=== PATIENT | female | born 1970 | race Caucasian/White ===

== ENCOUNTER 2019-10-28 19:36 | Emergency (ER) | payer OTHER, SELFPAY ==
--- NOTE | ~2019-10-28 | CT_ITS ---
EXAMINATION: CT abdomen pelvis w con INDICATION: Right lower quadrant pain TECHNIQUE: Computed tomographic images of the abdomen and pelvis were obtained after the administrati on of 100 cc of Omnipaque 350 intravenous contrast. The dose-length product (DLP) was 658.01 mGy-cm. Automated exposure control and iterative reconstruction technique were employed. COMPARISON: None available FINDINGS: The lung bases are clear. The heart size is normal. An old right-sided rib fracture is note d. There is a small sliding hiatal hernia. Breast implants are noted. The gallbladder is surgically a bsent. There is mild enlargement of the common bile duct and central intrahepatic ducts which is like ly due to post cholecystectomy state. The liver, spleen, pancreas, and adrenal glands are normal. The kidneys are unremarkable. The appendix is normal. There is calcified atherosclerosis of the aorta an d many of the other arteries. No pathologically enlarged abdominal or pelvic lymph nodes are identifi ed. There is no free intraperitoneal gas or evidence of bowel obstruction. A corpus luteum is noted i n the right ovary. There is moderate spondylosis of the lower thoracic spine. A fat-containing umbili diaz hernia is noted. IMPRESSION: 1. No CT correlate for the patient's symptoms. Reviewed, dictated and finalized at location A.
[2019-10-28 19:40] VITALS: BP 149/86; PULSE 96; RESP 18; TEMP 36.3; O2SAT 98
--- NOTE | 2019-10-28 19:48 | ED.ABDPAIN ---
HPI - Abdominal Pain General Chief Complaint: Abdominal Pain Stated Complaint: abd pain Time Seen by Provider: 10/28/19 19:48 History of Present Illness HPI narrative: Intermittent stabbing RLQ abdominal pain for the past couple of hours. No radiation. No inciting event. Lasts for a few minutes each time. She has never had this pain before. No nausea, vomiting, diarrhea, constipation, dysuria. Related Data Home Medications Medication Instructions Recorded Confirmed pantoprazole PO 05/01/19 Allergies Allergy/AdvReac Type Severity Reaction Status Date / Time codeine Allergy Unknown Verified 10/28/19 19:42 Review of Systems Review of Systems: All systems reviewed & are unremarkable except as noted in HPI and below Constitutional: Constitutional: Denies fever(s) Cardiovascular: Cardiovascular: Denies chest pain Respiratory: Respiratory: Denies dyspnea Gastrointestinal: Gastrointestinal: Reports abdominal pain, Denies constipation, Denies diarrhea, Denies nausea and Denies vomiting Musculoskeletal: Musculoskeletal: Denies back pain Neurologic: Denies dizziness and Denies weakness PMFSH Past Medical History Medical History Brain aneurysm Surgical History Surgical History History of craniotomy surgery for brain aneurysm Hx of section Hx of cholecystectomy Social History Social History Smoking status: Smoker, status unknown Alcohol intake: current Gender identity (if verbalized by the patient): Female Exam Const: General: no acute distress and alert Orientation/consciousness: patient oriented x3 HENMT: Head: normal to inspection Resp: Effort & Inspection: normal respiratory effort Auscultation: clear to auscultation bilaterally Cardio: Rate: regular rate Rhythm: regular rhythm GI: Inspection: non-distended GI Palp: Yes Soft to palpation and No Tenderness to palpation present (GI) Auscultation: normal bowel sounds Course Vital Signs Vital signs: Vital Signs Temperature 36.3 C L 10/28/19 19:40 Pulse Rate 96 10/28/19 19:40 Respiratory Rate 18 10/28/19 19:40 Blood Pressure 149/86 H 10/28/19 19:40 Pulse Oximetry 98 10/28/19 19:40 Temperature 36.3 C L 10/28/19 19:40 Pulse Rate 94 10/28/19 22:44 Respiratory Rate 16 10/28/19 22:44 Blood Pressure 111/75 10/28/19 22:44 Pulse Oximetry 97 10/28/19 22:44 MDM - Abdominal Pain MDM Narrative Medical decision making narrative: No more pain since arrival to the ED. She now believes that she was having gas pains. CT and labs unrevealing. Differential Diagnosis Differential diagnosis: Likely acute appendicitis, calculus of kidney, constipation and pancreatitis Medical Records Attestation: I reviewed the patient's medical records. Lab Data Attestation: I reviewed the patient's lab results. Result diagrams: 10/28/19 20:22 10/28/19 21:03 Labs: Lab Results 10/28/19 10/28/19 10/28/19 Range/Units 20:01 20:22 21:03 WBC 15.0 H (4.5-10.0) K/mm3 RBC 4.25 (4.2-5.4) M/mm3 Hgb 13.1 (12.0-15.0) g/dL Hct 38.9 (37.0-47.0) % MCV 91.5 (80-100) fl MCH 30.8 (26-34) pg MCHC 33.7 (32-36) g/dl RDW 12.8 (11.5-14.5) % Plt Count 428 H (150-375) k/mm3 MPV 9.3 (7.4-10.4) fl Immature Gran % (Auto) 0.5 (0-0.5) % Neut % (Auto) 74.5 H (45.5-73.1) % Lymph % (Auto) 18.4 (18.3-44.2) % [place] % (Auto) 5.4 (2.6-8.5) % Eos % (Auto) 0.9 (0-4.4) % Baso % (Auto) 0.3 (0.2-1.2) % Lymph # (Auto) 2.76 (0.9-3.2) K/mm3 [place] # (Auto) 0.8 H (0.1-0.6) K/mm3 Eos # (Auto) 0.1 (0-0.3) K/mm3 Baso # (Auto) 0.1 (0.0-0.1) K/mm3 Abs Immat Gran (auto) 0.07 H (0.00-0.031) K/mm3 Absolute Neuts (auto) 11.1 H (1.3-6.7) K/mm3 Absolute Nucleated RB
[2019-10-28 20:29] LABS: Basophils Absolute Auto 0.1 K/mm3 (0.0-0.1); Basophils Percent Auto 0.3 % (0.2-1.2); Eosinophils Absolute Auto 0.1 K/mm3 (0-0.3); Eosinophils Percent Auto 0.9 % (0-4.4); Hematocrit 38.9 % (37.0-47.0); Hemoglobin 13.1 g/dL (12.0-15.0); Immature Granulocyte Absolute 0.07 K/mm3 (0.00-0.031); Immature Granulocyte Percent A 0.5 % (0-0.5); Lymphocytes Absolute Auto 2.76 K/mm3 (0.9-3.2); Lymphocytes Percent Auto 18.4 % (18.3-44.2); Mean Corpuscular HGB Conc 33.7 g/dl (32-36); Mean Corpuscular Hemoglobin 30.8 pg (26-34); Mean Corpuscular Volume 91.5 fl (80-100); Mean Platelet Volume 9.3 fl (7.4-10.4); Monocytes Absolute Auto 0.8 K/mm3 (0.1-0.6); Monocytes Percent Auto 5.4 % (2.6-8.5); Neutrophils Absolute Auto 11.1 K/mm3 (1.3-6.7); Neutrophils Percent Auto 74.5 % (45.5-73.1); Platelet Count Result 428 k/mm3 (150-375); Red Blood Count 4.25 M/mm3 (4.2-5.4); Red Cell Distribution Width 12.8 % (11.5-14.5)
[2019-10-28 20:33] LABS: Add Urine Microscopic? NO; Appearance Urine Clear (Clear); Bilirubin Urine Negative (Negative); Blood Urine Negative (Negative); Color Urine Straw (Yellow); Glucose Urine UA Negative (Negative); Ketones Urine Negative (Negative); Leukocyte Esterase Ur Negative LEU/UL (Negative); Nitrate Urine Negative (Negative); Protein Urine Negative (Negative); Specific Grav Ur 1.006 (1.001-1.035); Urobilinogen Urine Negative mg/dL (<2.0)
[2019-10-28 21:21] LABS: Blood Urea Nitrogen 9 mg/dL (7-17); Calcium 8.9 mg/dL (8.4-10.2); Carbon Dioxide 24 mmol/L (22-30); Chloride 105 mmol/L (98-107); Estimated CRCL calculation 97 ml/min; Estimated Glomerular Filt Rate > 60; Glucose 106 mg/dL (65-105); Potassium 3.9 mmol/L (3.4-5.0); Sodium 136 mmol/L (137-145)
--- NOTE | 2019-10-28 21:31 | PC.NURSE ---
Pt now taken down to CT at 2130.
[2019-10-28 22:09] VITALS: BP 125/77; PULSE 96; RESP 18; O2SAT 97
--- NOTE | 2019-10-28 22:16 | PC.NURSE ---
Pt states she has been feeling fine since she's been here, denies any pain. Sates she think it may have just been gas, made aware.
[2019-10-28 22:44] VITALS: BP 111/75; PULSE 94; RESP 16; O2SAT 97
== END 2019-10-28 22:25 | disposition home or self-care (01) ==
PROVIDERS: Emergency Medicine; Emergency Provider Emergency Medicine; PCP Emergency Medicine
DX: R10.31 Right lower quadrant pain (principal)
CPT/HCPCS: 36415; 74177; 80048; 81003; 85025; 99284; Q9967

== ENCOUNTER 2019-12-30 09:37 | Emergency (ER) | payer OTHER, SELFPAY ==
--- NOTE | ~2019-12-30 | XR_ITS ---
XR elbow LT min 3V DATE: 12/30/2019 10:02 INDICATION: Left elbow pain. No known injury. TECHNIQUE: 4 views COMPARISON: None FINDINGS: No fracture or dislocation or joint effusion. No periosteal reaction or bone destruction. IMPRESSION: No significant abnormality Reviewed, dictated and finalized at location B. IMPRESSION: No significant abnormality
[2019-12-30 09:47] VITALS: BP 143/80; PULSE 100; RESP 18; TEMP 37; O2SAT 97
--- NOTE | 2019-12-30 09:59 | ED.UPPEXIN ---
HPI - Extremity Injury (Upper) General Chief Complaint: Extremity Injury, Upper Stated Complaint: left arm pain Time Seen by Provider: 12/30/19 09:52 Source: RN notes reviewed History of Present Illness HPI narrative: Patient presents emergency department from home for left elbow pain. Patient states symptoms initially began 2 months ago. Patient states pain initially began when she picked up a cast iron skillet. Since that time she is had pain in the left elbow this is worse with activity. The pain is worse with full extension of the elbow. She denies any previous work-up. Denies any swelling of the elbow denies any fevers or chills Related Data Allergies Allergy/AdvReac Type Severity Reaction Status Date / Time codeine Allergy Chest Pain Verified 12/30/19 09:46 Review of Systems Review of Systems: Narrative: Gen.: Denies fevers or chills Musculoskeletal: See HPI Neuro: Denies numbness, tingling, weakness Skin: Denies rash Endo: Denies DM PMFSH Past Medical History Medical History Brain aneurysm Social History Social History Smoking status: Smoker, status unknown Alcohol intake: current Gender identity (if verbalized by the patient): Female Exam Narrative: Exam Narrative: APPEARANCE: No acute distress, nontoxic, resting in bed Eyes: EOMI HEENT: Normocephalic, atraumatic, RESPIRATORY: No respiratory distress MUSCULOSKELETAl: Tender palpation over the left elbow in between the lateral condyle and olecranon process there is no tenderness directly over the olecranon process or the bilateral condyles there is no swelling or erythema pain with full extension of the elbow, no tenderness of the shoulder or wrist, radial pulse 2+, neurovascular intact NEURO: Awake and alert. Following commands, speech normal, no focal deficits SKIN:: Warm, dry. Normal Color no rash or lesions Course Course Emergency Course: Discussed with patient results of workup and diagnosis. Discussed need for follow-up with primary care, proper use of medication, and reasons to return to the emergency department. Patient understands and agrees to current treatment plan Vital Signs Vital signs: Vital Signs Temperature 98.6 F 12/30/19 09:47 Pulse Rate 100 12/30/19 09:47 Respiratory Rate 18 12/30/19 09:47 Blood Pressure 143/80 H 12/30/19 09:47 Pulse Oximetry 97 12/30/19 09:47 Temperature 98.6 F 12/30/19 09:47 Pulse Rate 100 12/30/19 09:47 Respiratory Rate 18 12/30/19 09:47 Blood Pressure 143/80 H 12/30/19 09:47 Pulse Oximetry 97 12/30/19 09:47 MDM - Extremity Injury (Upper) Imaging Data Radiologist's impression: ITS Impressions Elbow X-Ray 12/30/19 10:04 IMPRESSION: No significant abnormality Discharge Plan Discharge Clinical Impression: Elbow pain, left Patient Disposition: Home, Self-Care Condition: Stable Instructions: Antibiotic Form, Elbow Sprain (ED) Additional Instructions: Return for increasing pain, numbness or tingling in extremities or any other symptoms of concern Prescriptions: New ibuprofen [IBU] 600 mg tablet 600 mg PO Q6H PRN (Reason: pain) Qty: 20 RF: 0 Follow-up/Referrals: Neeraj Benedict MD [Physician] - (Follow-up in 2 to 3 days for further orthopedic treatment and evaluation) Poncho Pratt MD [Primary Care Provider] - 2 Days Time of Disposition: 10:11
[2019-12-30] MEDS: IBUPROFEN 600 MG TABLET PO (10:11)
== END 2019-12-30 10:32 | disposition home or self-care (01) ==
PROVIDERS: Emergency Provider Emergency Medicine; PCP Emergency Medicine
DX: M25.522 Pain in left elbow (principal)
CPT/HCPCS: 73080; 99283; A4565; A9270

== ENCOUNTER 2020-01-24 18:50 | Emergency (ER) | payer OTHER, SELFPAY ==
[2020-01-24 19:00] VITALS: BP 138/83; PULSE 118; RESP 18; TEMP 37.1; O2SAT 98
[2020-01-24] MEDS: methylPREDNISolone SOD SUCC 125 MG VIAL IV PUSH (20:01)
[2020-01-24] MEDS: FAMOTIDINE 20 MG/2 ML VIAL IV PUSH (20:01)
[2020-01-24] MEDS: diphenhydrAMINE HCl INJ 50 MG/ML VIAL 25 MG IV PUSH (20:01)
[2020-01-24] MEDS: SODIUM CHLORIDE 0.9% IV 1,000 ML 999 ML IV CONT (20:01)
--- NOTE | 2020-01-24 21:03 | ED.GENADULT ---
HPI - General Adult General Chief complaint: Allergic Reaction <Daron Torrez PA-C - Last Filed: 01/24/20 21:06> Stated complaint: stung by yellow jackets! <Daron Torrez PA-C - Last Filed: 01/24/20 21:06> Time Seen by Provider: 01/24/20 19:35 <Daron Torrez PA-C - Last Filed: 01/24/20 21:06> Source: patient <Daron Torrez PA-C - Last Filed: 01/24/20 21:06> Mode of arrival: ambulatory <Daron Torrez PA-C - Last Filed: 01/24/20 21:06> Limitations: no limitations <Daron Torrez PA-C - Last Filed: 01/24/20 21:06> History of Present Illness HPI narrative: Patient is a 49-year-old female who presents to emergency department for evaluation of welts secondary to multiple yellowjacket stings that occurred today while working in the yard patient was stung multiple times has not taken anything for her symptoms and on arrival is resting comfortably in the room in no distress symptoms are worse with palpation <Daron Torrez PA-C - Last Filed: 01/24/20 21:06> Related Data Allergies/adverse reactions: Allergies Allergy/AdvReac Type Severity Reaction Status Date / Time codeine Allergy Chest Pain Verified 12/30/19 09:46 <Daron Torrez PA-C - Last Filed: 01/24/20 21:06> Review of Systems Review of Systems: All systems reviewed & are unremarkable except as noted in HPI and below <Daron Torrez PA-C - Last Filed: 01/24/20 21:06> [facility] Past Medical History Medical History: Medical History Brain aneurysm <Daron Torrez PA-C - Last Filed: 01/24/20 21:06> Surgical History Surgical History: Surgical History History of craniotomy surgery for brain aneurysm Hx of section Hx of cholecystectomy <JOHN Sumner Last Filed: 01/24/20 21:06> Social History Social History: Social History Smoking status: Smoker, status unknown Alcohol intake: current Gender identity (if verbalized by the patient): Female <Daron Torrez PA-C - Last Filed: 01/24/20 21:06> Exam Narrative: Exam Narrative: GENERAL: Well-appearing, well-nourished, and in no acute distress. HEAD: Normocephalic, atraumatic. EYES: PERRLA and EOMI. ENT: Nares clear, no rhinorrhea or epistaxis. Mucous membranes moist. Oropharynx without tonsillar hypertrophy exudate or other lesions. No angioedema in the oropharynx NECK: Supple. No adenopathy or masses. No stridor CHEST: Clear to auscultation. No respiratory distress. No wheezes rales or rhonchi HEART: Regular rate and rhythm. No murmur heard. EXTREMITIES: Normal range of motion. No edema. SKIN: Warm, dry. Patient with several welts on the abdomen and extremities consistent with insect stings NEURO: No focal deficits. Alert and oriented x3. PSYCH: Normal mood and affect. <Daron Torrez PA-C - Last Filed: 01/24/20 21:06> Course Course Emergency Course: Patient aware of case findings treatment plan and diagnosis agreeing to follow-up as instructed and felt appropriate for discharge home <Daron Torrez PA-C - Last Filed: 01/24/20 21:06> Vital Signs Vital signs: Vital Signs Temperature 98.7 F 01/24/20 19:00 Pulse Rate 118 H 01/24/20 19:00 Respiratory Rate 18 01/24/20 19:00 Blood Pressure 138/83 01/24/20 19:00 Pulse Oximetry 98 01/24/20 19:00 Temperature 98.1 F 01/24/20 21:24 Pulse Rate 84 01/24/20 21:24 Respiratory Rate 16 01/24/20 21:24 Blood Pressure 111/74 01/24/20 21:24 Pulse Oximetry 98 01/24/20 21:24 <Daron Torrez PA-C - Last Filed: 01/24/20 21:06> Vital Signs Temperature 98.7 F 01/24/20 19:00 Pulse Rate 118 H 01/24/20 19:00 Respiratory Rate 18 01/24/20 19:00 Blood Pressure 138/83 01/24/20 19:00 Pulse Oximetry 98 01/24/20 19:00
[2020-01-24] MEDS: TETANUS,DIPHTHERIA,AC PERTUSSIS ADULT (0.5 ML) BOOSTRIX IM (21:20)
[2020-01-24 21:24] VITALS: BP 111/74; PULSE 84; RESP 16; TEMP 36.7; O2SAT 98
== END 2020-01-24 21:24 | disposition home or self-care (01) ==
PROVIDERS: Emergency Provider Emergency Medicine; PCP Emergency Medicine
DX: T63.461A Toxic effect of venom of wasps, accidental (unintentional), initial encounter (principal); Z23 Encounter for immunization
CPT/HCPCS: 90471; 90715; 96361; 96374; 96375; 99284; J1200; J2930; J7030

== ENCOUNTER 2020-07-19 13:50 | Outpatient (CLI) | payer OTHER, SELFPAY ==
--- NOTE | ~2020-07-19 | US_ITS ---
US renal BI 07/19/2020 14:21 Procedure: Realtime transabdominal ultrasound of the kidneys and bladder. Indication: Abdomen pain Comparison: CT dated 10/28/2019 Findings: Renal echotexture is normal bilaterally without hydronephrosis, contour deforming mass or r enal calculus. The right kidney measures 10.3 cm and left kidney measures 11.3 cm. Bladder within no rmal limits. Impression: 1: Unremarkable renal ultrasound. No stones, masses or hydronephrosis. Reviewed, dictated and finalized at location B. L PRESSER Impression: 1: Unremarkable renal ultrasound. No stones, masses or hydronephrosis.
== END 2020-07-19 13:51 | disposition home or self-care (01) ==
PROVIDERS: PCP Emergency Medicine; Visit Provider Emergency Medicine
DX: R10.9 Unspecified abdominal pain (principal)
CPT/HCPCS: 76775

== ENCOUNTER 2020-07-20 14:47 | Outpatient (CLI) | payer OTHER, SELFPAY ==
--- NOTE | ~2020-07-20 | MM_ITS ---
EXAMINATION: MM scrn marcelo implant BI w trini HISTORY: Screening mammogram TECHNIQUE: Craniocaudal and mediolateral oblique 3-D tomosynthesis images with implant displacement a nd synthetic 2-D images were generated. Craniocaudal and mediolateral oblique views of the breasts wi thout implant displacement were obtained using full field digital mammography. CAD analysis was submi tted and interpreted. COMPARISON: 05/10/2019 diagnostic left mammogram and limited left breast ultrasound 01/18/2019 bilateral implant digital screening mammogram BREAST PARENCHYMAL COMPOSITION: The breasts are heterogeneously dense, which may obscure small masses . FINDINGS: Status post bilateral augmentation mammoplasty. There are scattered bilateral benign calcifications including particularly calcified microhematomas. .There is no evidence of suspicious mass, calcification, or architectural distortion to suggest malig more in either breast. There has been no suspicious interval change. IMPRESSION: 1. No mammographic evidence of malignancy. 2. Recommend routine screening mammography in one year. BI-RADS Category 2: Benign finding(s). Reviewed, dictated and finalized at location A. [employer]GER
== END 2020-07-20 14:48 | disposition home or self-care (01) ==
LOC: ANHIMG 14:51
PROVIDERS: PCP Emergency Medicine; Visit Provider Emergency Medicine
DX: Z12.31 Encounter for screening mammogram for malignant neoplasm of breast (principal)
CPT/HCPCS: 77063; 77067; 97161

== ENCOUNTER 2020-08-31 15:00 | Outpatient (RCR) | payer OTHER, SELFPAY ==
--- NOTE | 2020-07-20 13:29 | PTOPEVAL ---
PHYSICAL THERAPY EVALUATION AND PLAN OF CARE 07-20-20 Thank you for referring Ariella Bravo to [facility] for the diagnosis of R flank pain. She is scheduled to be seen for therapy? 2 x/week for 3 weeks. Please review, sign, date and return this plan of care GREG. I agree with and certify that the following plan of care is medically necessary. Referring Physician Date Attending Provider: Poncho Pratt MD PT Outpatient Evaluation Start: 07/20/20 12:36 Document 07/20/20 12:30 JIMBO (Rec: 07/20/20 13:06 JIMBO [id number]) Outpatient Past Medical History Past Medical History Source of Past Medical History Patient Neurological History Hx Other Neurological Disorders Yes: brain aneurysm- resolved, non surgical Cardiovascular History Hx Cardiac Disorders No Significant History Respiratory History Hx Asthma Yes: had inhaler in past, not have script for now Gastrointestinal History Hx Cholecystectomy Yes Hx Gastroesophageal Reflux Disease Yes Genitourinary History Hx Genitourinary Disorders No Significant History Musculoskeletal History Hx Back Pain Yes: due to previous rib fractures Hx Other Musculoskeletal Disorders Yes: R post rib fracture; L ant rib fracture- due to sneezing; Hematological History Hx Hematological Disorders No Significant History Endocrine History Hx Endocrine Disorders No Significant History HEENT History Hx HEENT Disorders No Significant History Integumentary History Hx Skin Disorders No Significant History Reproductive History Hx Section Yes Psychosocial History Hx Psychiatric Disorders No Significant History Pain History History of Any Previous or Ongoing No Significant History Instance of Pain Anesthesia History Hx Anesthesia Reactions No Significant History Evaluation Information Problem Diagnosis R flank pain Onset Apr 2020 Subjective Information since April, pain has eased Query Text:As Reported By Patient/ up for few days, then returns Family and hurts; no injury or trauma; this feels different than back pain- not like her back pain in the past; had ultrasound of kidney yesterday - not know results; to have colonoscopy- not scheduled yet; had urine test - no infection; Prior Level of Function Activity Level (Last 3 Months) 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
--- NOTE | 2020-07-25 15:28 | PCPTNOTE ---
Patient called & cancelled scheduled appointment this date stating she didn't feel comfortable driving on with road with recent weather.
--- NOTE | 2020-08-08 15:42 | PTOPEVAL ---
PHYSICAL THERAPY RE-EVALUATION AND UPDATED PLAN OF CARE 08-08-20 Refer to the clinical summary below for her status today, compared to the initial evaluation. Continue PT treatment 1x/week for 5 weeks, to further increase trunk and hip strength, progress home exercise program and improve body mechanics/posture. Thank you for referring Ariella Bravo to [facility] [place].? Please review, sign, date and return this plan of care [facility]. I agree with and certify that the following plan of care is medically necessary. 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; not return to dr until finish all the tests I was to schedule: sleep study, cancer dr due to blood work, colonoscopy; after finish all that, to go back to dr; Pain Assessment Timing of Pain Assessment Timing of Pain Assessment Assessment Pain Scale Pain Scale Used Numeric (1 - 10) Self Report Pain Assessment Right Spine, Thoracic Reported Pain Level 1 Radicular Pain Location R and L thoracic- lumbar spine -hurts and tight; no longer R side/flank pain Pain Frequency Chronic Other Pain Description stiff, feel old and bones old; Lowest Pain Intensity 1 Greatest Pain Intensity 3 Pain Aggravating Factors Sitting Other Pain Aggravating Factors sitting tolerance 20 minutes; sitting only thing-- everything else is OK Pain Score Pain Score 1: Self Report Additional Pain Score Comments can tolerate lying on her R side/ when on L side pulls back; problems in general with sleeping, not just due to her back; Interventions Used Interventions Used By Clinicians Education Pain Relief Interventions Used By Exercise,Heat,Medication Patient Other Alleviating Interventions taking muscle relaxer script- at night for sleeping; stretching trunk Cervical and Lumbar ROM Lumbar ROM Lumbar Comments standing trunk: flexion- fingers to toes- no change
--- NOTE | 2020-09-07 15:20 | PCPTNOTE ---
Patient did not show up for scheduled appointment this date. Called and had to leave a message.
--- NOTE | 2020-09-12 15:47 | PCPTNOTE ---
pt called and canceled today's reevaluation, reason was not given;
--- NOTE | 2020-10-01 13:17 | PCPTNOTE ---
PHYSICAL THERAPY DISCHARGE 10-01-20 Attending Provider: Poncho Pratt MD Patient:Ariella Bravo Date of :1970 Ms. Bravo has received 7 PT sessions, from July 20 to August 31 for the diagnosis of R flank pain. She called and canceled the reevaluation appointment and did not return for further treatment. Therefore she will be discharged from PT at this time. The goals were not addressed. Thank you for referring this patient to [facility]. Please review, sign, date and return this discharge summary GREG. I have been updated about the patient's current status and I agree with discharge from the above service at this time. Referring Physician Date
== END 2020-10-02 09:03 | disposition home or self-care (01) ==
LOC: ANHPT 15:00
PROVIDERS: PCP Emergency Medicine; Visit Provider Emergency Medicine
DX: R10.84 Generalized abdominal pain (principal)
CPT/HCPCS: 97012; 97110; 97140; 97161

== ENCOUNTER 2021-12-06 05:43 | Emergency (ER) | payer OTHER, SELFPAY ==
--- NOTE | ~2021-12-06 | XR_ITS ---
XR lumbar spine min 4V 12/06/2021 06:45 Indication: Low back pain Procedure: 5 views of the lumbar spine Comparison: No prior studies for comparison. Findings: Vertebral body heights are maintained. There is degenerative disc disease and endplate scle rosis at T11-12. There is mild disc narrowing at L5-S1. No acute fracture, subluxation or spondylolis thesis. There is mild atherosclerosis of the aorta. There are cholecystectomy clips. Pedicles intact. Sacral foramen are symmetric. Impression: 1: Mild lumbar spondylosis. Reviewed, dictated and finalized at location A. Impression: 1: Mild lumbar spondylosis.
[2021-12-06 05:43] VITALS: BP 129/85; PULSE 101; RESP 18; TEMP 36.6; O2SAT 96
[2021-12-06] MEDS: KETOROLAC 30 MG/ML VIAL (*BKC) IM (06:25)
--- NOTE | 2021-12-06 06:29 | ED.BACK ---
HPI - Back Pain/Injury General Chief Complaint: Back Pain/Injury Stated Complaint: back pain Time Seen by Provider: 12/06/21 06:17 Source: patient Mode of arrival: ambulatory Limitations: no limitations History of Present Illness HPI Narrative: 51-year-old with a history of hypercholesterolemia here with complaints of low back pain for past 9 days got worse in the last few hours.. 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 She states that the pain radiates to her buttock area. No urinary symptoms MD elicited complaint: back pain Timing: constant Severity: moderate Quality: aching Location: lumbar spine Radiation: buttocks Exacerbating factors: none Relieving factors: none Context: while lifting Associated symptoms: denies other symptoms Related Data Allergies Allergy/AdvReac Type Severity Reaction Status Date / Time codeine Allergy Chest Pain Verified 12/06/21 05:57 Review of Systems Review of Systems: All systems reviewed & are unremarkable except as noted in HPI and below Constitutional: Constitutional: Reports no additional constitutional complaints Eyes: Eyes: Reports no additional eye complaints ENT: Reports system reviewed and no additional complaints, except as documented Cardiovascular: Cardiovascular: Reports no additional cardiovascular complaints Respiratory: Respiratory: Reports no additional respiratory complaints Gastrointestinal: Gastrointestinal: Reports no additional gastrointestinal complaints Genitourinary: Genitourinary: Reports no additional female genitourinary complaints Musculoskeletal: Musculoskeletal: Reports as per HPI Neurologic: Reports system reviewed and no additional complaints, except as documented Psychiatric: Psychiatric: Reports no additional psychiatric complaints Endocrine: Endocrine: Reports no additional endocrine complaints [facility] Past Medical History Medical History (Updated 12/06/21 @ 06:50 by Kahlil Trinidad MD) Brain aneurysm Surgical History Surgical History History of craniotomy surgery for brain aneurysm Hx of section Hx of cholecystectomy Social History Social History Smoking status: Smoker, status unknown Alcohol intake: current Gender identity (if verbalized by the patient): Female Exam Narrative: GENERAL: Well-appearing, well-nourished, and in no acute distress. HEAD: Normocephalic, atraumatic. EYES: PERRLA and EOMI. NECK: Supple. CHEST: Clear to auscultation. No respiratory distress. HEART: Regular rate and rhythm. No murmur heard. Normal peripheral pulses. Back Pain in the L2 , 3,4 area, no CVA tenderness . EXTREMITIES: Normal range of motion. No edema. SKIN: Warm, dry, no rash. NEURO: No focal deficits. Alert and oriented x3. PSYCH: Normal mood and affect. Course Vital Signs Vital signs: Vital Signs Temperature 36.6 C 12/06/21 05:43 Pulse Rate 101 H 12/06/21 05:43 Respiratory Rate 18 12/06/21 05:43 Blood Pressure 129/85 12/06/21 05:43 Pulse Oximetry 96 12/06/21 05:43 Oxygen Delivery Room Air 12/06/21 05:43 Temperature 36.6 C 12/06/21 05:43 Pulse Rate 101 H 12/06/21 05:43 Respiratory Rate 18 12/06/21 05:43 Blood Pressure 129/85 12/06/21 05:43 Pulse Oximetry 96 12/06/21 05:43 Oxygen Delivery Room Air 12/06/21 05:43 MDM - Back Pain/Injury Lab Data Labs: Lab Results 12/06/21 Range/Units 06:25 Urine Color Yellow (Yellow) Urine Appearance Clear (Clear) Urine pH 7.5 (5.0-9.0) Ur Specific [place] 1.015 (1.001-1.035) Urine Protein Negative (Negative) mg/dL Urine Glucose (UA) Negative (Negative) mg/dL Urine Ketones Negative (Negative) mg/dL Ur Blood (Man) Negative (Negative) Urine Nitrate Negative (Negative) Urine Bilirubin Negative (Negative)
[2021-12-06 06:36] LABS: Appearance Urine Clear (Clear); Bilirubin Urine Negative (Negative); Blood Urine Negative (Negative); Color Urine Yellow (Yellow); Glucose Urine UA Negative (Negative); Ketones Urine Negative (Negative); Leukocyte Esterase Ur Negative LEU/UL (Negative); Nitrate Urine Negative (Negative); Protein Urine Negative (Negative); RBC Urine 0-2 /hpf (0-2); Specific Grav Ur 1.015 (1.001-1.035); Squamous Epithelial Cell Urine Rare /hpf (Few); Urobilinogen Urine 0.2 mg/dL (<2.0); WBC Urine 0-3 /hpf; pH Urine 7.5 (5.0-9.0)
[2021-12-06 06:43] LABS: Add Urine Microscopic? YES
[2021-12-06 07:07] VITALS: BP 128/79; PULSE 74; RESP 16; O2SAT 97
== END 2021-12-06 07:05 | disposition home or self-care (01) ==
PROVIDERS: Emergency Provider Family Medicine; PCP Emergency Medicine
DX: M54.50 Low back pain, unspecified (principal)
CPT/HCPCS: 72110; 81001; 81025; 96372; 99283; J1885

== ENCOUNTER 2022-02-07 14:22 | Outpatient (CLI) | payer OTHER, SELFPAY ==
--- NOTE | ~2022-02-07 | MM_ITS ---
EXAMINATION: MM scrn marcelo implant BI w trini HISTORY: Screening mammogram TECHNIQUE: Craniocaudal and mediolateral oblique 3-D tomosynthesis images with implant displacement a nd synthetic 2-D images were generated. Craniocaudal and mediolateral oblique views of the breasts wi thout implant displacement were obtained using full field digital mammography. CAD analysis was submi tted and interpreted. COMPARISON: July 20, 2020 bilateral screening mammogram May 10, 2019 diagnostic left mammogram and limited left breast ultrasound 01/18/2019 bilateral implant screening mammogram BREAST PARENCHYMAL COMPOSITION: The breasts are heterogeneously dense, which may obscure small masses . FINDINGS: Scattered bilateral benign calcifications. There is no evidence of suspicious mass, calcifi cation, or architectural distortion to suggest malignancy in either breast. There has been no suspici ous interval change. IMPRESSION: 1. No mammographic evidence of malignancy. 2. Recommend routine screening mammography in one year. BI-RADS Category 2: Benign finding(s). Reviewed, dictated and finalized at location A.
== END 2022-02-07 14:23 | disposition home or self-care (01) ==
LOC: ANHIMG 14:24
PROVIDERS: PCP Emergency Medicine; Visit Provider Emergency Medicine
DX: Z12.31 Encounter for screening mammogram for malignant neoplasm of breast (principal)
CPT/HCPCS: 77063; 77067

== ENCOUNTER 2022-06-30 16:24 | Outpatient (CLI) | payer OTHER, SELFPAY ==
--- NOTE | ~2022-06-30 | CT_ITS ---
EXAMINATION: CT lung screening DATE: 06/30/2022 16:40 INDICATION: TOBACCO USE TECHNIQUE: Computed tomography (CT) of the chest was performed without intravenous contrast. Addition al 3D reconstructions utilizing coronal maximum intensity projection (MIP) were performed. Automated exposure control and iterative reconstruction technique were employed. The dose-length product was 12 1.75 mGy-cm. COMPARISON: None FINDINGS: Mild to moderate upper lung predominant emphysema. Mild linear discoid atelectasis at the lateral bas ilar right lower lobe and at the inferior lingula. No suspicious pulmonary nodules, pneumonia, pulmon milvia edema or pleural effusion. Heart size is normal. Atherosclerotic coronary artery calcifications. No pericardial effusion. Thoracic aorta is normal in caliber. Bilateral breast implants. Cholecystect issac clips the gallbladder fossa. Moderate to severe spondylosis in the lower cervical to the upper shruthi mbar spine. Chronic mild anterior wedging at T12. 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 IMPRESSION: 1. Lung-RADS category 1: Negative. Continue annual screening with noncontrast low-dose chest CT in 12 months. Reviewed, dictated and finalized at location B. P FOLDING MACHINE OPERATOR IMPRESSION: 1. Lung-RADS category 1: Negative. Continue annual screening with noncontrast l ow-dose chest CT in 12 months.
== END 2022-06-30 16:25 | disposition home or self-care (01) ==
LOC: ANHIMG 16:29
PROVIDERS: PCP Emergency Medicine; Visit Provider Emergency Medicine
DX: Z12.2 Encounter for screening for malignant neoplasm of respiratory organs (principal); Z87.891 Personal history of nicotine dependence
CPT/HCPCS: 71271

== ENCOUNTER 2022-07-23 15:29 | Outpatient (CLI) | payer OTHER, SELFPAY ==
--- NOTE | ~2022-07-23 | MR_ITS ---
EXAMINATION: MR brain/brain stem wo/w con DATE: 07/23/2022 17:02 INDICATION: Transient ischemic attack. Headache. Left-sided numbness. TECHNIQUE: Magnetic resonance imaging (MRI) of the brain and brainstem was performed without and with 15 mL MultiHance intravenous contrast. COMPARISON: None. FINDINGS: There is no intracranial hemorrhage, acute infarction, or abnormal intracranial mass lesion . The ventricles are normal in size. The paranasal sinuses are clear. The orbits are normal. The mast oid air cells are normal. IMPRESSION: 1. Normal brain. Reviewed, dictated and finalized at location A. ERCIAL PEST CONTROL TECHNICIAN IMPRESSION: 1. Normal brain.
== END 2022-07-23 15:30 | disposition home or self-care (01) ==
PROVIDERS: PCP Emergency Medicine; Visit Provider Emergency Medicine
DX: R20.2 Paresthesia of skin (principal)
CPT/HCPCS: 70553; A9577

== ENCOUNTER 2023-02-13 08:29 | Outpatient (CLI) | payer OTHER, SELFPAY ==
--- NOTE | ~2023-02-13 | DEXA_ITS ---
Bone Density Report Name: RAFAL HOGUE Age: 52 Sex: Female Ethnicity: White Date of : 1970 Indication: postmenopausal; screening for osteoporosis; height loss; asthma or emphysema; Referring Provider: LUIS ALBERTO ISABEL Study: Bone densitometry was performed. Exam Date: February 13, 2023 Accession number: [id number] Bone Density: Region BMD T-score Z-score Classification AP Spine(L1-L4) 1.232 1.7 2.5 Normal Femoral Neck (Left) 0.792 -0.5 0.3 Normal Total Hip (Left) 0.954 0.1 0.6 Normal Femoral Neck (Right) 0.895 0.4 1.2 Normal Total Hip (Right) 0.989 0.4 0.9 Normal Total Hip Mean 0.972 0.3 0.8 Normal World Health Organization criteria for BMD impression classify patients as: Normal (T-score at or above -1.0), Osteopenia (T-score between -1.0 and -2.5), or Osteoporosis (T-score at or below -2.5). 10-year Fracture Risk: FRAX not reported because: All T-scores for Spine Total, Hip Total, Femoral Neck at or above -1.0 Clinical Information Provided by Patient: Smokes Has the following medical conditions: Asthma or Emphysema Patient maximum height was 63 Menopause Age: 51 No regular weight bearing exercise Drinks caffeinated beverages Onset of menses at age 12 Number of children 2 Impression: The patient has normal bone mass. The patient has risk factors, including: smoking. Discussion: BONE DENSITY IS ABOVE THE MINIMUM DESIRABLE LEVEL AT ALL SKELETAL SITES TESTED. This patient?s bone mineral density is above the minimum desirable level (T-score -1.0 or better) at all sites measured. The patient should follow a healthful lifestyle (good nutrition with adequate calcium and vitamin D, and appropriate weight-bearing exercise). Follow-Up: Consider repeating this study in 5 years or sooner if there is some new clinical indication. Reported by: DARIO on 02/13/2023 8:56:00 AM. Reviewed, dictated and finalized at location AAlonso GARY
== END 2023-02-13 08:30 | disposition home or self-care (01) ==
PROVIDERS: PCP Emergency Medicine; Visit Provider Emergency Medicine
DX: Z78.0 Asymptomatic menopausal state (principal)
CPT/HCPCS: 77080

== ENCOUNTER 2023-11-17 10:54 | Emergency (ER) | payer OTHER, SELFPAY ==
--- NOTE | ~2023-11-17 | CT_ITS ---
CT brain wo con Ordering provider: Maribeth Rendon III, DO History: 53 years Female with . intermittent blurred vision . Comparison: None. Technique: CT of the head without contrast. Radiation reduction technique utilized. FINDINGS: BRAIN PARENCHYMA AND CSF SPACES: No midline shift, mass effect or hemorrhage. The brain parenchyma and CSF spaces are otherwise norm al. Empty sella turcica. VISUALIZED PARANASAL SINUSES: Well aerated. MASTOIDS: Well aerated. BONES: The bones appear intact. SOFT TISSUES: Visualized nasopharynx is normal. Superficial soft tissues are normal. IMPRESSION: No acute intracranial findings. Reviewed, dictated and finalized at location A.
[2023-11-17 11:02] VITALS: BP 137/85; PULSE 114; RESP 20; TEMP 36.3; O2SAT 96
--- NOTE | 2023-11-17 11:32 | ED.GENADULT ---
HPI - General Adult General Chief complaint: Unspecified Stated complaint: blurry vision Time Seen by Provider: 11/17/23 11:23 History of Present Illness HPI narrative: Pt presents with intermittent blurred vision for weeks. Pt says it's like she's looking through vaseline. It usually lasts a few seconds but lasted several minutes today before resolving. Pt has no MITCHELL or weakness, just the blurred vision. Pt says it is fine now. Related Data Home Medications Medication Instructions Recorded Confirmed pantoprazole 40 mg tablet,delayed mg PO 04/13/23 release rosuvastatin 20 mg tablet 20 mg PO 04/13/23 spironolactone 50 mg tablet 50 mg PO 04/13/23 Allergies Allergy/AdvReac Type Severity Reaction Status Date / Time codeine Allergy Intermediate Chest Pain Verified 04/13/23 14:54 Review of Systems Review of Systems: All systems reviewed & are unremarkable except as noted in HPI and below PMFSH Past Medical History Medical History Asthma Brain aneurysm Hyperthyroidism Surgical History Surgical History History of colposcopy benign History of craniotomy surgery for brain aneurysm History of excision of lesion squamous cell carcinoma perineum Hx of breast implants, bilateral 1994 2012 2014 Hx of section Hx of cholecystectomy Family History Family History Father Hypertension Heart disease Mother Hypertension Acute myocardial infarction Sibling Acute myocardial infarction Social History Social History Smoking status: Former smoker Alcohol intake: current Substance use: never Living arrangements: with family Gender identity (if verbalized by the patient): Female Sexual Orientation (if Verbalized by the Patient): Straight or Heterosexual Exam Const: General: cooperative, healthy appearing and no acute distress Nutritional Appearance: average body habitus Orientation/consciousness: patient oriented x3 Limitations: no limitations HENMT: Head: normal to inspection Eyes: Visual Mejia: normal visual mejia by confrontation Alignment and Position: alignment normal and position normal Periorbital: periorbital findings normal Eyelids: eyelids normal Conjunctivae: conjunctivae normal Sclera: sclerae normal Pupils: Equal, round and reactive pupils present EOM: EOMs intact bilaterally Direct Ophthalmoscopy: normal light reflex and no photophobia Resp: Effort & Inspection: normal respiratory effort Auscultation: clear to auscultation bilaterally Cardio: Rate: regular rate Rhythm: regular rhythm Skin: General skin exam: normal color Neuro: Cranial nerves: Yes CN's II-XII intact bilaterally and Yes Equal, round and reactive pupils present Speech: normal speech Motor exam (neuro): Motor abnormalities not present Extrem: General: normal to inspection, full ROM and no clubbing, cyanosis or edema Psych: Speech and movement: Normal speech and movement present Affect: normal affect Attitude: cooperative Thought process: Normal thought process present Thought content: Yes Normal thought content present Insight: Good insight present (Psych) Judgement: Good judgement present (Psych) Course Vital Signs Vital signs: Vital Signs Temperature 97.3 F L 11/17/23 11:02 Pulse Rate 114 H 11/17/23 11:02 Respiratory Rate 20 11/17/23 11:02 Blood Pressure 137/85 11/17/23 11:02 Pulse Oximetry 96 11/17/23 11:02 Temperature 98.3 F 11/17/23 12:35 Pulse Rate 67 11/17/23 12:35 Respiratory Rate 18 11/17/23 12:35 Blood Pressure 128/78 11/17/23 12:35 Pulse Oximetry 100 11/17/23 12:35 Medical Decision Making MDM Narrative Medical decision making narrative: Pt presents with intermittent blurred vision lasting a few seconds t
[2023-11-17 12:35] VITALS: BP 128/78; PULSE 67; RESP 18; TEMP 36.8; O2SAT 100
== END 2023-11-17 12:36 | disposition home or self-care (01) ==
PROVIDERS: Emergency Provider Emergency Medicine; PCP Emergency Medicine
DX: H53.8 Other visual disturbances (principal); J45.909 Unspecified asthma, uncomplicated; E05.90 Thyrotoxicosis, unspecified without thyrotoxic crisis or storm; Z90.49 Acquired absence of other specified parts of digestive tract; Z87.891 Personal history of nicotine dependence
CPT/HCPCS: 70450; 99284

== ENCOUNTER 2024-04-23 11:08 | Emergency (ER) | payer OTHER, SELFPAY ==
[2024-04-23 11:09] VITALS: BP 123/70; PULSE 90; RESP 16; TEMP 36.6; O2SAT 99
--- NOTE | 2024-04-23 11:19 | PC.NURSE ---
Patient reports numbness and discomfort in right arm, states that it feels like someone putting pressure in arm pit
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
== END 2024-04-23 15:27 | disposition home or self-care (01) ==
PROVIDERS: Emergency Provider Emergency Medicine; PCP Emergency Medicine
DX: T85.9XXA Unspecified complication of internal prosthetic device, implant and graft, initial encounter (principal); J45.909 Unspecified asthma, uncomplicated; E05.90 Thyrotoxicosis, unspecified without thyrotoxic crisis or storm; Z87.891 Personal history of nicotine dependence; Z90.49 Acquired absence of other specified parts of digestive tract; Y83.1 Surgical operation with implant of artificial internal device as the cause of abnormal reaction of the patient, or of later complication, without mention of misadventure at the time of the procedure
CPT/HCPCS: 99281